=== PATIENT | male | born 1945 | race Caucasian/White ===

== ENCOUNTER → 2021-09-27 | Outpatient (CLI) | payer MEDICARE | END | disposition home or self-care (01) | LOC: SHCH 15:56 | PROVIDERS: ATTEND Student in an Organized Health Care Education/Training Program | DX: I08.1 Rheumatic disorders of both mitral and tricuspid valves (principal) | CPT/HCPCS: 93306 ==

== ENCOUNTER 2021-10-19 05:55 | Day surgery (SDC) | payer MEDICARE ==
[2021-10-17 11:55] VITALS: BP 140/82
[2021-10-17 14:33] LABS: APPEARANCE,URINE Clear (CLEAR); BILIRUBIN,URINE Negative (NEGATIVE); COLOR,URINE Yellow (YELLOW); GLUCOSE, URINE (UA) Negative (NEGATIVE); KETONES,URINE Negative (NEGATIVE); LEUKOCYTE ESTERASE ,URINE Negative (NEGATIVE); NITRATE,URINE Negative (NEGATIVE); OCCULT BLOOD,URINE Negative (NEGATIVE); PH,URINE 5.5 (5.0-8.0); PROTEIN,URINE Negative (NEGATIVE)
[2021-10-17 15:00] LABS: BASOPHILS % (AUTO) 0.3 % (0.0-5.0); EOSINOPHILS % (AUTO) 0.1 % (0.0-8.0); HEMATOCRIT 53.3 % (42-54); LYMPHOCYTES % (AUTO) 9.5 % (21.0-51.0); MEAN CORPUSCULAR HEMOGLOBIN 29.4 pg (27.0-33.0); MONOCYTES % (AUTO) 7.9 % (3.0-13.0); NEUTROPHILS % (AUTO) 81.6 % (40.0-77.0); PLATELET COUNT (AUTO) 213 K/uL (130-400); RED BLOOD CELL COUNT(AUTO) 5.99 MIL/uL (4.50-6.20); RED CELL DISTRIBUTION WIDTH 13.4 % (11.0-15.5); WHITE BLOOD COUNT (AUTO) 15.2 K/uL (4.8-10.8)
[2021-10-17 15:11] LABS: INR 1.08 (0.85-1.15); PROTHROMBIN TIME 11.7 SEC (9.6-11.6)
[2021-10-17 15:13] LABS: PARTIAL THROMBOPLASTIN TIME 29.2 SEC (26.3-35.5)
[2021-10-17 15:15] LABS: CREATININE 0.8 mg/dL (0.5-1.5); POTASSIUM 4.1 mmol/L (3.5-5.1)
[~2021-10-19] VITALS: Ht 185.4 cm; Wt 94.6 kg
[2021-10-19] VITALS (12 sets, daily range): BP systolic 119–154; BP diastolic 72–98
[~2021-10-19 05:55] MED LIST: APIX5TAB PO; CHOL2000 PO; LOSA25TA41 PO; METH4TAB PO; MULT-1367 PO; VITA1CAP85 PO; zinc sulfate PO
[2021-10-19] MEDS ORDERED: 0.9%NACL 1000ML 1,000 ML IV ONE (06:12)
[2021-10-19] MEDS ORDERED: IOHEXOL-350 75 ML VIAL IV ONE (07:07)
[2021-10-19] MEDS ORDERED: IOHEXOL-350 50ML VIAL IV ONE (07:07)
[2021-10-19] MEDS ORDERED: IOHEXOL 350 MG/ML 100ML INFUS..BTL IV ONE (07:07)
[2021-10-19] MEDS ORDERED: NITROGLYCERIN 50MG VIAL ONE (07:07)
[2021-10-19] MEDS ORDERED: FENTANYL CITRATE PF 50 MCG/1 ML 2ML VIAL ONE (07:08)
[2021-10-19] MEDS ORDERED: LIDOCAINE HCL 400MG/20ML VIAL ONE (07:08)
[2021-10-19] MEDS ORDERED: MIDAZOLAM HCL 1 MG/ML 2ML VIAL ONE ×2 (07:08→07:46)
[2021-10-19] MEDS ORDERED: DEXTROSE 50%-WATER 50 ML DISP.SYRIN IV PRN (08:30)
[2021-10-19] MEDS ORDERED: GLUCAGON 1MG KIT 1 MG ML IM PRN (08:30)
[2021-10-19] MEDS ORDERED: 0.9%NACL 1000ML 1,000 ML IV SCH (08:30)
== END 2021-10-19 16:15 | disposition home or self-care (01) ==
LOC: DAH 05:55
PROVIDERS: ATTEND Student in an Organized Health Care Education/Training Program
DX: R42 Dizziness and giddiness (principal); I48.91 Unspecified atrial fibrillation; I49.5 Sick sinus syndrome; I11.0 Hypertensive heart disease with heart failure; I50.42 Chronic combined systolic (congestive) and diastolic (congestive) heart failure; E78.5 Hyperlipidemia, unspecified; Z79.899 Other long term (current) drug therapy; Z79.01 Long term (current) use of anticoagulants; Z98.890 Other specified postprocedural states; Z82.3 Family history of stroke; Z72.89 Other problems related to lifestyle
CPT/HCPCS: 36415; 71045; 80048; 81003; 85025; 85610; 85730; 93005; 93454; A4215; A4216; A4221; A4222; A4223 ×3; A4606; A4663; C1760; C1894 ×2; J1644; J2250 ×2; J3010; J3490 ×2; J7030; Q9965; Q9967 ×2; 99156; 99157

== ENCOUNTER 2021-12-07 05:43 | Day surgery (SDC) | payer MEDICARE ==
[2021-12-05 13:25] LABS: BASOPHILS % (AUTO) 0.8 % (0.0-5.0); EOSINOPHILS % (AUTO) 1.9 % (0.0-8.0); HEMATOCRIT 50.9 % (42-54); LYMPHOCYTES % (AUTO) 24.4 % (21.0-51.0); MEAN CORPUSCULAR HEMOGLOBIN 30.3 pg (27.0-33.0); MEAN CORPUSCULAR HGB CONC 33.6 g/dL (32.0-36.0); MEAN CORPUSCULAR VOLUME 90.1 fL (79-99); MONOCYTES % (AUTO) 9.7 % (3.0-13.0); NEUTROPHILS % (AUTO) 62.9 % (40.0-77.0); PLATELET COUNT (AUTO) 159 K/uL (130-400); RED BLOOD CELL COUNT(AUTO) 5.65 MIL/uL (4.50-6.20); RED CELL DISTRIBUTION WIDTH 13.4 % (11.0-15.5); WHITE BLOOD COUNT (AUTO) 7.8 K/uL (4.8-10.8)
[2021-12-05 13:39] LABS: INR 1.1 (0.85-1.15); PROTHROMBIN TIME 11.9 SEC (9.6-11.6)
[2021-12-05 13:40] LABS: PARTIAL THROMBOPLASTIN TIME 31.1 SEC (26.3-35.5)
[2021-12-05 13:43] LABS: CREATININE 0.9 mg/dL (0.5-1.5); POTASSIUM 4.6 mmol/L (3.5-5.1)
[2021-12-07] VITALS (10 sets, daily range): BP systolic 110–134; BP diastolic 69–88
[~2021-12-07] VITALS: Ht 185.4 cm; Wt 94.8 kg
[~2021-12-07 05:43] MED LIST changes: +0.9%NACL 1000ML 1,000 ML IV SCH; -CHOL2000 PO; -METH4TAB PO; -MULT-1367 PO; -VITA1CAP85 PO; -zinc sulfate PO
[2021-12-07] MEDS ORDERED: CEFAZOLIN SODIUM 1 GM VIAL IVP SCH (06:00)
[2021-12-07] MEDS ORDERED: BUPIVACAINE/PF 0.25% 30ML VIAL IJ ONE ×2 (07:09→07:37)
[2021-12-07] MEDS ORDERED: CEFAZOLIN SODIUM 1 GM VIAL ONE (07:09)
[2021-12-07] MEDS ORDERED: MEPERIDINE-PF 25 MG/ML SYG ONE ×3 (07:10→08:02)
[2021-12-07] MEDS ORDERED: MIDAZOLAM HCL 1 MG/ML 2ML VIAL ONE ×3 (07:10→08:02)
[2021-12-07] MEDS ORDERED: IODIXANOL 320 MG/ML 100 ML VIAL ONE (07:10)
[2021-12-07] MEDS ORDERED: LIDOCAINE HCL 400MG/20ML VIAL ONE (07:11)
[2021-12-07] MEDS ORDERED: LIDOCAINE HCL 1% MDV 50ML VIAL ONE (07:37)
[2021-12-07] MEDS ORDERED: TRAM50TA4 PO (10:00)
[2021-12-07] MEDS ORDERED: ACETAMINOPHEN WITH CODEINE 1 TAB TAB PO PRN (10:00)
== END 2021-12-07 14:00 | disposition home or self-care (01) ==
LOC: DAH 05:43
PROVIDERS: ATTEND Internal Medicine Cardiovascular Disease
DX: I48.21 Permanent atrial fibrillation (principal); I44.39 Other atrioventricular block; I49.3 Ventricular premature depolarization; I48.91 Unspecified atrial fibrillation; I11.0 Hypertensive heart disease with heart failure; I50.22 Chronic systolic (congestive) heart failure; I45.89 Other specified conduction disorders; E78.5 Hyperlipidemia, unspecified; Z72.89 Other problems related to lifestyle; Z82.49 Family history of ischemic heart disease and other diseases of the circulatory system; Z79.899 Other long term (current) drug therapy; Z79.01 Long term (current) use of anticoagulants; Z95.1 Presence of aortocoronary bypass graft
CPT/HCPCS: 33207; 33225; 36415; 71045; 80048; 85025; 85610; 85730; 93005; A4215; A4216; A4221; A4222; A4223 ×3; A4606; A4663; C1769; C1898; C1900; C2621; J0690; J2175 ×3; J2250 ×3; J3490 ×4; J7030; Q9967; 99156; 99157

== ENCOUNTER → 2022-07-06 | Outpatient (CLI) | payer MEDICARE ==
[~2022-07-06] MED LIST changes: -0.9%NACL 1000ML 1,000 ML IV SCH; +TRAM50TA4 PO
== END | disposition home or self-care (01) ==
LOC: SHCH 10:48
PROVIDERS: ATTEND Internal Medicine Cardiovascular Disease
DX: I87.2 Venous insufficiency (chronic) (peripheral) (principal)
CPT/HCPCS: 93970

== ENCOUNTER → 2022-09-21 | Outpatient (CLI) | payer MEDICARE ==
[2022-09-21 11:33] LABS: BASOPHILS % (AUTO) 0.9 % (0.0-5.0); EOSINOPHILS % (AUTO) 2.2 % (0.0-8.0); HEMATOCRIT 47.7 % (42-54); MEAN CORPUSCULAR HEMOGLOBIN 29.6 pg (27.0-33.0); MEAN CORPUSCULAR HGB CONC 32.9 g/dL (32.0-36.0); MEAN CORPUSCULAR VOLUME 89.8 fL (79-99); MONOCYTES % (AUTO) 9.1 % (3.0-13.0); NEUTROPHILS % (AUTO) 67.6 % (40.0-77.0); PLATELET COUNT (AUTO) 153 K/uL (130-400); RED BLOOD CELL COUNT(AUTO) 5.31 MIL/uL (4.50-6.20); RED CELL DISTRIBUTION WIDTH 13.9 % (11.0-15.5); WHITE BLOOD COUNT (AUTO) 8.2 K/uL (4.8-10.8)
[2022-09-21 11:37] LABS: INR 0.97 (0.85-1.15); PROTHROMBIN TIME 10.6 SEC (9.6-11.6)
[2022-09-21 11:38] LABS: PARTIAL THROMBOPLASTIN TIME 29.6 SEC (26.3-35.5)
== END | disposition home or self-care (01) ==
LOC: LAB 08:07
PROVIDERS: ATTEND Internal Medicine Cardiovascular Disease
DX: I87.2 Venous insufficiency (chronic) (peripheral) (principal); I10 Essential (primary) hypertension; E78.5 Hyperlipidemia, unspecified; I87.1 Compression of vein; I48.21 Permanent atrial fibrillation; Z95.0 Presence of cardiac pacemaker; Z79.01 Long term (current) use of anticoagulants; Z79.899 Other long term (current) drug therapy
CPT/HCPCS: 36415; 80048; 85025; 85610; 85730

== ENCOUNTER → 2024-09-23 | Outpatient (CLI) | payer MEDICARE ==
[~2024-09-23] MED LIST changes: +FURO20TA4 PO; +LOSA50TA64 PO; +METO-408 PO; +metoPROLOL tartRATE 1 MG/ML 5ML VIAL IV ONE
== END | disposition home or self-care (01) ==
LOC: RAH 10:42
PROVIDERS: ATTEND Internal Medicine Cardiovascular Disease
DX: R06.09 Other forms of dyspnea (principal); R07.9 Chest pain, unspecified
CPT/HCPCS: 75574; J3490

== ENCOUNTER → 2024-09-26 | Outpatient (CLI) | payer MEDICARE ==
[~2024-09-26] MED LIST changes: -metoPROLOL tartRATE 1 MG/ML 5ML VIAL IV ONE
--- NOTE | 2024-10-02 07:00 | HMCSR ---
APPROVED REPORT EXAM: Two-dimensional and M-mode echocardiogram with Doppler and color Doppler. INDICATION ICD: R06.09 Other forms of dyspnea Atrial Fibrillation 2D Dimensions RVDd4.9 cmLVEF(%)10.3 (>50%)LVED Vol(simp.)222.0 mL IVSd1.0 (0.7-1.1cm)FS(%)5 %LVES Vol(simp.)192.0 mL LVDd5.9 (3.8-5.6cm)Ao Root(2D)3.6 (2.0-3.7cm)LVEF(%, simp.)13 % PWd1.0 (0.7-1.1cm)LVOT diam2.2 (1.8-2.4cm)LA ESV INDEX (BP)57.86 mL/m2 LVDs5.6 (2.5-4.0cm)IVC diam2.4 cm Aortic Valve AoV Vmax1.0 m/Rossy Peak GR3.7 mmHgLVOT Vmax0.7 m/s AoV VTI0.2 mAo Mean GR2.0 mmHgLVOT VTI0.12 m DOROTHY (VMAX)3.0 cm2AVA (VTI) 3.0 cm2 Mitral Valve MV E Vmax75.3 cm/sDECEL Xvld460 ms MR Max PG68 mmHgP 1/2 T45 ms MVA (PHT)4.9 cm2 Pulmonary Valve PV Vmax0.8 m/sPV VTI0.15 mPV Mean GR2 mmHg PV Peak GR2.6 mmHg Tricuspid Valve TR Vmax2.8 m/sRAP (EST) 15 foXiZHXE15.4 mmHg TR Peak GR31.4 mmHg Left Ventricle The left ventricle is moderately dilated. Severe global hypokinesis noted There is normal left ventri cular wall thickness. LVEF is 15%. Indeterminate diastolic dysfunction. Right Ventricle The right ventricle is severely dilated. Right ventricular systolic function is moderately reduced. Atria The left atrium is severely dilated. The right atrium is severely dilated. Aortic Valve Aortic valve is trileaflet. Aortic valve leaflets are sclerotic but open well. Trace aortic regurgita tion. There is no aortic valvular stenosis. Mitral Valve The mitral valve is mildly thickened. Mitral regurgitation is mild to moderate. There is no mitral va lve stenosis. Tricuspid Valve The tricuspid valve leaflets appear normal. There is moderate tricuspid regurgitation. Right ventricu lar systolic pressure is estimated at 40-50 mmHg. Pulmonic Valve Pulmonic valve is not well visualized. Great Vessels The aortic root is normal in size. IVC is dilated and collapses <50% with inspiration. Pericardium No pericardial effusion. Conclusion LVEF is 15%. Severe global hypokinesis noted Right ventricular systolic function is moderately reduced. The right ventricle is severely dilated. Mitral regurgitation is mild to moderate. There is moderate tricuspid regurgitation. Right ventricular systolic pressure is estimated at 40-50 mmHg. The aortic root is normal in size. No pericardial effusion.
== END | disposition home or self-care (01) ==
LOC: SHCH 15:41
PROVIDERS: ATTEND Internal Medicine Cardiovascular Disease
DX: I08.3 Combined rheumatic disorders of mitral, aortic and tricuspid valves (principal); I48.0 Paroxysmal atrial fibrillation; R06.09 Other forms of dyspnea
CPT/HCPCS: 93306

== ENCOUNTER → 2025-02-04 | Outpatient (CLI) | payer MEDICARE ==
[~2025-02-04] MED LIST changes: +ALBUTEROL 0.083% 2.5 MG/3 ML INH IH ONE; -LOSA25TA41 PO; -LOSA50TA64 PO; -METO-408 PO
== END | disposition home or self-care (01) ==
LOC: RESP 14:07
PROVIDERS: ATTEND Internal Medicine Cardiovascular Disease
DX: J40 Bronchitis, not specified as acute or chronic (principal); R06.02 Shortness of breath; R06.00 Dyspnea, unspecified
CPT/HCPCS: 94060; 94729